=== PATIENT | female | born 1985 | race African-American/Black ===

== ENCOUNTER 2017-11-06 09:37 | Emergency (ER) | payer MEDICAID ==
[~2017-11-06] VITALS: Ht 167.6 cm; Wt 72.7 kg
[~2017-11-06 09:37] MED LIST: ALBU8.5H3 IH; ALPR1TAB7 PO; OLAN5TAB2 PO; PROMVCC5L PO; RISP1 PO
[2017-11-06] MEDS ORDERED: KETOROLAC TROMETHAMINE 60 MG/2 ML VIAL IM ONE (10:45)
[2017-11-06] MEDS ORDERED: METHOCARBAMOL 500 MG TABLET PO ONE (10:45)
[2017-11-06] MEDS ORDERED: OLAN10TA3 PO (10:50)
[2017-11-06 11:15] VITALS: BP 136/89
== END 2017-11-06 11:30 | disposition home or self-care (01) ==
LOC: EMS 09:39
DX: S39.012A Strain of muscle, fascia and tendon of lower back, initial encounter (principal); R03.0 Elevated blood-pressure reading, without diagnosis of hypertension; J45.909 Unspecified asthma, uncomplicated; X50.1XXA Overexertion from prolonged static or awkward postures, initial encounter; Y93.89 Activity, other specified; Y92.89 Other specified places as the place of occurrence of the external cause; Y99.8 Other external cause status
CPT/HCPCS: 96372; 99283; J1885